=== PATIENT | male | born 1995 | race Caucasian/White ===

== ENCOUNTER 2020-03-24 10:44 | Emergency (ER) | payer SELFPAY ==
[~2020-03-24] VITALS: Ht 180.3 cm; Wt 100.0 kg
[2020-03-24 10:48] VITALS: Ht 180.3 cm; Wt 100.0 kg
[2020-03-24] MEDS ORDERED: KEFLEX500 MG PO (11:37)
[2020-03-24 12:03] VITALS: BP 114/73
== END 2020-03-24 12:04 | disposition home or self-care (01) ==
LOC: D.ER 10:44
DX: S61.211A Laceration without foreign body of left index finger without damage to nail, initial encounter (principal); W45.8XXA Other foreign body or object entering through skin, initial encounter; Y93.9 Activity, unspecified; Y92.9 Unspecified place or not applicable